=== PATIENT | male | born 1995 | race Hispanic/Latino ===

== ENCOUNTER 2017-09-28 21:27 | Observation (INO) | payer BC ==
[2017-09-28] MEDS ORDERED: IBUPROFEN 400 MG TAB ONE (21:53)
[2017-09-28] MEDS ORDERED: IBUPROFEN 200 MG TAB PO ONE (21:53)
[2017-09-28] MEDS ORDERED: ONDANSETRON 4 MG/2 ML VIAL ONE (21:57)
[2017-09-28] MEDS ORDERED: NA CHLORIDE 0.9% 1,000 ML ONE ×2 (22:13→23:20)
[2017-09-28 22:19] LABS: Absolute Lymphocytes (CBC) 2.4 K/uL (0.7-4.9); Absolute Monocytes 1.6 K/uL (0.1-1.3); Absolute Neutrophil 15.8 K/uL (1.8-8.0); Basophils % 0.3 % (0-1.3); Eosinophils % 0.1 % (0-4.4); Hematocrit 46.8 % (39.6-49.0); Lymphocytes % 12.2 % (15.3-44.8); MCH 28.1 pg (27.0-35.0); MPV 9.7 fL (7.6-11.3); Monocytes % 7.9 % (3.3-12.3); RBC Red Blood Cell Count 5.71 M/uL (4.33-5.43)
[2017-09-28 22:25] LABS: Protime INR 1.08
[2017-09-28 22:31] LABS: Bicarbonate 25 mEq/L (21-31); Glucose Level 108 mg/dL (65-120); Potassium 3.2 mEq/L (3.6-5.0); Sodium Level 134 mEq/L (135-145)
[2017-09-28 22:39] LABS: ALT/SGPT 185 IU/L (10-60); AST/SGOT 116 IU/L (10-42); Albumin 4.5 g/dL (3.2-5.5); Alkaline Phosphatase 134 IU/L (42-121); BUN Blood Urea Nitrogen 12 mg/dL (6-20); Bilirubin Direct 0.2 mg/dL (0-0.2); Bilirubin Total 1.2 mg/dL (0.3-1.2); C-Reactive Protein 70.4 mg/L (<10.0); Creatine Phosphokinase 95 IU/L (22-269); Protein, Total 8.5 g/dL (6.0-8.3)
--- NOTE | 2017-09-28 22:42 | RAD REPORT ---
EXAM DESCRIPTION: RAD - Chest Single View - 09/28/2017 10:33 pm CLINICAL HISTORY: Fever, chest pain COMPARISON: None. FINDINGS: Portable technique limits examination quality. The lungs are grossly clear. The heart is normal in size. No displaced fractures. IMPRESSION: No acute intrathoracic process suspected.
--- NOTE | 2017-09-28 22:43 | RAD REPORT ---
EXAM DESCRIPTION: RAD - Foot Right 3 View - 09/28/2017 10:32 pm CLINICAL HISTORY: Pain and fever. COMPARISON: None. FINDINGS: No bone or joint abnormality seen. No aggressive marrow lesion. No soft tissue gas is evid ent.
[2017-09-28] MEDS ORDERED: LIDOCAINE JELLY 2%- 5 ML TUBE ONE (23:33)
--- NOTE | 2017-09-29 00:12 | ER ---
Nurse's Notes [facility] Name: Pancho Chairez Age: 21 yrs Sex: Male : 1995 Arrival Date: 09/28/2017 Time: 21:27 Bed 8 Private MD: Diagnosis: Cellulitis of right toe Presentation: 09/28 21:40 Presenting complaint: Patient states: "Last night I started to run a fever, and when I aj1 was walking I noticed pain in the bottom of my foot, when I looked there's this black area between my toes." Reports nausea, denies vomiting, diarrhea. Transition of care: patient was not received from another setting of care. Onset of symptoms was September 27, 2017. Risk Assessment: Do you want to hurt yourself or someone else? Patient reports no desire to harm self or others. Initial Sepsis Screen: Does the patient meet any 2 criteria? Temp <36.0*C (96.8*F)) or > 38.3*C (100.4*F). HR > 90 bpm. Yes Does the patient have a suspected source of infection? Yes: Skin breakdown/wound. Care prior to arrival: None. 21:40 Method Of Arrival: Ambulatory aj 21:40 Acuity: JERRICA 3 aj1 Triage Assessment: 21:45 General: Appears uncomfortable, ill, Behavior is anxious, crying. Pain: Complains of aj1 pain in right foot Pain does not radiate. Pain currently is 10 out of 10 on a pain scale. Quality of pain is described as throbbing, Pain began 1 day ago. Is continuous, Aggravated by repositioning, weight bearing. Historical: - Allergies: 21:45 No Known Allergies; aj1 - Home Meds: 21:45 None [Active]; aj1 - PMHx: 21:45 None; aj1 - PSHx: 21:45 None; aj1 - Immunization history:: Flu vaccine status is unknown. - Social history:: Smoking status: Patient/guardian denies using tobacco. - Ebola Screening: : No symptoms or risks identified at this time. Screenin:02 Abuse screen: Denies threats or abuse. Denies injuries from another. Nutritional mg2 screening: No deficits noted. Tuberculosis screening: No symptoms or risk factors identified. Fall Risk IV access (20 points). Gait- Weak (10 pts.). Assessment: 21:57 General: Appears in no apparent distress. comfortable, Behavior is calm, cooperative. mg2 Pain: Complains of pain in right foot Pain does not radiate. Pain level that patient reports is acceptable is 5 out of 10 on a pain scale. Quality of pain is described as aching, tender, Pain began last night Is intermittent, Aggravated by weight bearing, touch. Pain: Aggravated by. Neuro: Level of Consciousness is awake, alert, obeys commands, Oriented to person, place, time, situation. Cardiovascular: Capillary refill < 3 seconds Patient's skin is warm and dry. Respiratory: Airway is patent Respiratory effort is even, unlabored, Respiratory pattern is regular, symmetrical. GI: No signs and/or symptoms were reported involving the gastrointestinal system. : No signs and/or symptoms were reported regarding the genitourinary system. EENT: No signs and/or symptoms were reported regarding the EENT system. Derm: Skin skin breakdown and discoloration Skin is pink, warm \\T\\ dry. Musculoskeletal: No signs and/or symptoms reported regarding the musculoskeletal system. Injury Description: possible insectbite. 23:00 Reassessment: Patient appears in no apparent distress at this time. Patient and/or aa1 family updated on plan of care and expected duration. Pain level reassessed. Patient is alert, oriented x 3, equal unlabored respirations, skin warm/dry/pink. Awaiting provider reassessment. 09/29 00:30 Reassessment: Patient appears in no apparent distress at this time. Patient and/or aa1 family updated on plan of care and expected duration. Pain level reassessed. Patient is alert, oriented x 3, equal unlabored respirations, skin warm/dry/pink. Pt to be admitted, awaiting bed assignment. 01:45 Reassessment: Patient appears in no apparent distress at this time. Patient and/or aa1 family updated on plan of care and expected duration. Pain level reassessed. Patient is alert, oriented x 3, equal unlabored respirations, skin warm/dry/pink. Awaiting bed assignment. 02:57 Reassessment: Patient appears in no apparent distress at this time. Patient and/or aa1 family updated on plan of care and expected duration. Pain level reassessed. Patient is alert, oriented x 3, equal unlabored respirations, skin warm/dry/pink. Attempted to call report to floor, nurse will call back. 03:13 Reassessment: Patient appears in no apparent distress at this time. Patient is alert, aa1 oriented x 3, equal unlabored respirations, skin warm/dry/pink. Report given to Yarely on 4th floor. Vital Signs: 09/28 21:45 BP 142 / 85; Pulse 120; Resp 20; Temp 101.5(TE); Pulse Ox 100% on R/A; Weight 95.25 kg aj1 (R); Height 5 ft. 5 in. (165.10 cm) (R); Pain 10/10; 21:50 Temp 99.5(O); aa1 22:49 BP 125 / 88; Pulse 112; Resp 18; Pulse Ox 95% on R/A; Pain 3/10; mg2 09/29 00:36 BP 116 / 73; Pulse 103; Resp 18; Temp 97.5; Pulse Ox 100% on R/A; Pain 2/10; mg2 01:59 BP 117 / 70; Pulse 102; Resp 18; Pulse Ox 98% on R/A; Pain 0/10; mg2 02:33 BP 119 / 84; Pulse 108; Resp 16; Pulse Ox 96% on R/A; aa1 03:04 BP 127 / 76; Pulse 88; Resp 16; Pulse Ox 97% on R/A; aa1 09/28 21:45 Body Mass Index 34.95 (95.25 kg, 165.10 cm) aj1 ED Course: 09/28 21:27 Patient arrived in ED. ds1 21:33 [facility] snw 21:33 Mainor Eric MD is Attending Physician. snw 21:44 Triage completed. aj1 21:45 Arm band placed on Patient placed in an exam room. aj1 21:45 Patient has correct armband on for positive identification. Placed in gown. Bed in low aa1 position. Call light in reach. Pulse ox on. NIBP on. 21:55 Pipo Espinosa, ANJALI is Primary Nurse. mg2 22:09 Inserted saline lock: 20 gauge in right antecubital area, using aseptic technique. mg2 Blood collected. 22:26 X-ray completed. Portable x-ray completed in exam room. Patient tolerated procedure kc2 well. 22:29 Chest Single View XRAY In Process Unspecified. EDMS 22:29 Foot Right 3 View XRAY In Process Unspecified. EDMS 09/29 00:00 Assist provider with I \\T\\ D: of an abscess on right webspace between 4th and fifth toe aa1 Set up I\\T\\D tray. Performed by Naina CHAU Culture sent to lab. Patient tolerated well. 00:10 Irina Donovan MD is Hospitalizing Provider. snw 00:13 Patient admitted, IV remains in place. aa1 Administered Medications: 09/28 21:54 Drug: Motrin 600 mg Route: PO; tl2 22:55 Follow up: Response: No adverse reaction; Temperature is decreased aa1 09/29 00:43 Follow up: Response: No adverse reaction; Pain is decreased mg2 09/28 22:09 Drug: Zofran 4 mg Route: IVP; Site: right antecubital; mg2 22:55 Follow up: Response: No adverse reaction; Nausea is decreased aa1 09/29 00:43 Follow up: Response: No adverse reaction mg2 09/28 22:14 Drug: NS 0.9% (30 ml/kg) 30 ml/kg Route: IV; Rate: bolus; Site: right antecubital; mg2 23:36 Drug: Lidocaine Gel 2 % 1 application Route: Mucous Membrane; mg2 09/29 00:27 Drug: vancoMYCIN 1 grams Route: IVPB; Infused Over: 2 hrs; Site: right antecubital; mg2 00:27 Drug: Doxycycline 100 mg Route: PO; mg2 02:05 Follow up: Response: No adverse reaction mg2 00:35 Drug: Potassium Chloride 40 mEq Route: PO; mg2 02:06 Follow up: Response: No adverse reaction mg2 Outcome: 00:11 Decision to Hospitalize by Provider. snw 03:18 Admitted to Med/surg accompanied by tech, family with patient, via wheelchair, room aa1 216, with chart, Report called to [place] 03:18 Condition: good 03:18 Instructed on the need for admit, Demonstrated understanding of instructions. 03:20 Patient left the ED. aa1 Signatures: Dispatcher [employer] EDMS Cassie Bolanos RN RN aj1 Angela Abreu RN RN aa1 Naina Chacon FNP-C MASH TUB COOKER OPERATOR-Bing Villegas ds1 Sallie Magallon kc2 Li Cee, RN RN tl2 Pipo Espinosa, RN RN mg2 Corrections: (The following items were deleted from the chart) 00:05 00:04 Reassessment: Patient appears in no apparent distress at this time. Patient is aa1 alert, oriented x 3, equal unlabored respirations, skin warm/dry/pink. Discussed d/c \\T\\ f/u instructions with pt; denies questions or concerns at this time Patient states feeling better. aa1 03:12 09/28 22:56 Temp 99.5F Oral; aa1 aa1 09/29 03:18 03:14 No provider procedures requiring assistance completed. aa1 aa1
--- NOTE | 2017-09-29 00:12 | EDPHYS ---
Physician Documentation [facility] Name: Pancho Chairez Age: 21 yrs Sex: Male : 1995 Arrival Date: 09/28/2017 Time: 21:27 Bed 8 Private MD: ED Physician Mainor Eric HPI: 09/28 23:34 This 21 yrs old Male presents to ER via Ambulatory with complaints of Possible snw Spider Bite. 23:34 Onset: The symptoms/episode began/occurred suddenly, this morning. Associated signs and snw symptoms: Pertinent positives: fever. Modifying factors: The patient symptoms are alleviated by nothing. The patient has not experienced similar symptoms in the past. It is unknown whether or not the patient has recently seen a physician. unknown injury, walking in grass with sandals yesterday. Awoke with fever and noted tenderness and erythema to right foot. Historical: - Allergies: 21:45 No Known Allergies; aj1 - Home Meds: 21:45 None [Active]; aj1 - PMHx: 21:45 None; aj1 - PSHx: 21:45 None; aj1 - Immunization history:: Flu vaccine status is unknown. - Social history:: Smoking status: Patient/guardian denies using tobacco. - Ebola Screening: : No symptoms or risks identified at this time. ROS: 23:33 Eyes: Negative for injury, pain, redness, and discharge, ENT: Negative for injury, snw pain, and discharge, Neck: Negative for injury, pain, and swelling, Cardiovascular: Negative for chest pain, palpitations, and edema, Respiratory: Negative for shortness of breath, cough, wheezing, and pleuritic chest pain. 23:33 Back: Negative for injury and pain, : Negative for injury, bleeding, discharge, and swelling, Skin: Negative for injury, rash, and discoloration, Neuro: Negative for headache, weakness, numbness, tingling, and seizure. 23:33 Constitutional: Positive for body aches, fatigue, fever, malaise. 23:33 Abdomen/GI: Positive for nausea. 23:33 MS/extremity: Positive for bite, pain, swelling, tenderness, of the plantar aspect of right fourth toe. Exam: 21:55 Head/Face: Normocephalic, atraumatic. Eyes: Pupils equal round and reactive to light, snw extra-ocular motions intact. Lids and lashes normal. Conjunctiva and sclera are non-icteric and not injected. Cornea within normal limits. Periorbital areas with no swelling, redness, or edema. ENT: Nares patent. No nasal discharge, no septal abnormalities noted. Tympanic membranes are normal and external auditory canals are clear. Oropharynx with no redness, swelling, or masses, exudates, or evidence of obstruction, uvula midline. Mucous membranes moist. Neck: Trachea midline, no thyromegaly or masses palpated, and no cervical lymphadenopathy. Supple, full range of motion without nuchal rigidity, or vertebral point tenderness. No Meningismus. Chest/axilla: Normal chest wall appearance and motion. Nontender with no deformity. No lesions are appreciated. 21:55 Respiratory: Lungs have equal breath sounds bilaterally, clear to auscultation and percussion. No rales, rhonchi or wheezes noted. No increased work of breathing, no retractions or nasal flaring. Abdomen/GI: Soft, non-tender, with normal bowel sounds. No distension or tympany. No guarding or rebound. No evidence of tenderness throughout. Back: No spinal tenderness. No costovertebral tenderness. Full range of motion. Skin: Warm, dry with normal turgor. Normal color with no rashes, no lesions, and no evidence of cellulitis. Neuro: Awake and alert, GCS 15, oriented to person, place, time, and situation. Cranial nerves II-XII grossly intact. Motor strength 5/5 in all extremities. Sensory grossly intact. Cerebellar exam normal. Normal gait. 21:55 Cardiovascular: Regular rate and rhythm with a normal S1 and S2. No gallops, murmurs, or rubs. Normal PMI, no JVD. No pulse deficits. 21:55 Constitutional: The patient appears awake, anxious, febrile, restless, uncomfortable. 21:55 Cardiovascular: Rate: tachycardic, Pulses: no pulse deficits are appreciated, Heart sounds: normal. 21:55 Musculoskeletal/extremity: ROM: intact in all extremities, Circulation is intact in all extremities. right fourth toe with erythema over the dorsal foot, blackened area laterally in toe webbing. Vital Signs: 21:45 BP 142 / 85; Pulse 120; Resp 20; Temp 101.5(TE); Pulse Ox 100% on R/A; Weight 95.25 kg aj1 (R); Height 5 ft. 5 in. (165.10 cm) (R); Pain 10/10; 21:50 Temp 99.5(O); aa1 22:49 BP 125 / 88; Pulse 112; Resp 18; Pulse Ox 95% on R/A; Pain 3/10; mg2 09/29 00:36 BP 116 / 73; Pulse 103; Resp 18; Temp 97.5; Pulse Ox 100% on R/A; Pain 2/10; mg2 01:59 BP 117 / 70; Pulse 102; Resp 18; Pulse Ox 98% on R/A; Pain 0/10; mg2 02:33 BP 119 / 84; Pulse 108; Resp 16; Pulse Ox 96% on R/A; aa1 03:04 BP 127 / 76; Pulse 88; Resp 16; Pulse Ox 97% on R/A; aa1 09/28 21:45 Body Mass Index 34.95 (95.25 kg, 165.10 cm) [facility] MDM: 09/28 21:48 Patient medically screened. [facility] 23:24 Data reviewed: vital signs, nurses notes. Data interpreted: Pulse oximetry: on room air snw is 95 %. Interpretation: normal. Counseling: I had a detailed discussion with the patient and/or guardian regarding: the historical points, exam findings, and any diagnostic results supporting the discharge/admit diagnosis, the presence of at least one elevated blood pressure reading (>120/80) during this emergency department visit, lab results, radiology results. 09/29 00:09 Physician consultation: Irina Donovan MD was called at 00:09, was contacted at 00:09, [facility] regarding admission, to the medical/surgical unit. and will see patient shortly. 09/28 21:51 Order name: Basic Metabolic Panel; Complete Time: 22:40 snw 09/28 21:51 Order name: Blood Culture Adult (2) snw 09/28 21:51 Order name: C-Reactive Protein; Complete Time: 22:40 snw 09/28 21:51 Order name: CBC with Diff; Complete Time: 22:59 snw 09/28 21:51 Order name: CPK; Complete Time: 22:40 snw 09/28 21:51 Order name: Lactate; Complete Time: 22:39 snw 09/28 21:51 Order name: LFT's; Complete Time: 22:40 snw 09/28 21:51 Order name: Procalcitonin; Complete Time: 22:59 snw 09/28 21:51 Order name: Protime (+inr); Complete Time: 22:39 snw 09/28 21:51 Order name: Ptt, Activated; Complete Time: 22:39 snw 09/28 21:51 Order name: Sed Rate; Complete Time: 22:59 snw 09/28 21:51 Order name: Chest Single View XRAY; Complete Time: 22:59 snw 09/28 23:34 Order name: Wound Culture snw 09/29 00:04 Order name: Urine Dipstick--Ancillary (enter results); Complete Time: 00:26 2 09/28 21:51 Order name: Cardiac monitoring; Complete Time: 22:14 snw 09/28 21:51 Order name: EKG - Nurse/Tech; Complete Time: 22:10 snw 09/28 21:51 Order name: IV Saline Lock - Large Bore; Complete Time: 22:10 snw 09/28 21:51 Order name: Labs collected and sent; Complete Time: 22:10 snw 09/28 21:51 Order name: O2 Per Protocol; Complete Time: 22:10 snw 09/28 21:51 Order name: O2 Sat Monitoring; Complete Time: 22:10 snw 09/28 21:51 Order name: Urine Dipstick-Ancillary (obtain specimen); Complete Time: 00:02 snw 09/28 21:52 Order name: Foot Right 3 View XRAY; Complete Time: 22:59 snw Administered Medications: 09/28 21:54 Drug: Motrin 600 mg Route: PO; tl2 22:55 Follow up: Response: No adverse reaction; Temperature is decreased aa1 09/29 00:43 Follow up: Response: No adverse reaction; Pain is decreased mg2 09/28 22:09 Drug: Zofran 4 mg Route: IVP; Site: right antecubital; mg2 22:55 Follow up: Response: No adverse reaction; Nausea is decreased aa1 09/29 00:43 Follow up: Response: No adverse reaction mg2 09/28 22:14 Drug: NS 0.9% (30 ml/kg) 30 ml/kg Route: IV; Rate: bolus; Site: right antecubital; mg2 23:36 Drug: Lidocaine Gel 2 % 1 application Route: Mucous Membrane; mg2 09/29 00:27 Drug: vancoMYCIN 1 grams Route: IVPB; Infused Over: 2 hrs; Site: right antecubital; mg2 00:27 Drug: Doxycycline 100 mg Route: PO; mg2 02:05 Follow up: Response: No adverse reaction mg2 00:35 Drug: Potassium Chloride 40 mEq Route: PO; mg2 02:06 Follow up: Response: No adverse reaction mg2 Disposition: 09/29/17 00:11 Hospitalization ordered by Irina Donovan for Observation. Preliminary diagnosis is Cellulitis of right toe. - Bed requested for Telemetry/MedSurg (observation). - Status is Observation. aa1 - Condition is Stable. - Problem is new. - Symptoms have improved. UTI on Admission? No Addendum: 09/30/2017 07:05 Co-signature as Attending Physician, Mainor Eric MD I agree with the assessment and c anderson plan of care. Signatures: Dispatcher [employer] EDMA Cassie Bolanos RN RN aj1 Holley Gaines RN RN kl Angela Abreu RN RN aa1 Mainor Eric MD MD cha Therrien, Shelly, CLINICAL RESEARCH NURSE COORDINATOR-C CLINICAL RESEARCH NURSE COORDINATOR-Csnw Li Cee, RN RN tl2 Pipo Espinosa RN RN mg2 Corrections: (The following items were deleted from the chart) 09/28 22:54 21:51 Accucheck ordered. snw aa1 09/29 02:19 00:11 Hospitalization Ordered by Irina Donovan MD for Observation. Preliminary kl diagnosis is Cellulitis of right toe. Bed requested for Telemetry/MedSurg (observation). Status is Observation. Condition is Stable. Problem is new. Symptoms have improved. UTI on Admission? No. snw 03:20 02:19 09/29/2017 00:11 Hospitalization Ordered by Irina Donovan MD for Observation. aa1 Preliminary diagnosis is Cellulitis of right toe. Bed requested for Telemetry/MedSurg (observation). Status is Observation. Condition is Stable. Problem is new. Symptoms have improved. UTI on Admission? No. kl
[2017-09-29] MEDS ORDERED: DOXYCYCLINE 100 MG CAP PO ONE (00:18)
[2017-09-29] MEDS ORDERED: VANCOMYCIN 1 GM/250 ML BAG ONE (00:19)
[2017-09-29 00:20] LABS: Urine Blood NEGATIVE (NEG); Urine Glucose NEGATIVE (NEG); Urine Protein NEGATIVE (NEG); Urine Specific Gravity 1.015 (1.005-1.030); Urine pH 7.5 (5.0-7.0)
[2017-09-29] MEDS ORDERED: POTASSIUM CL SA 10 MEQ TAB PO ONE (00:31)
[2017-09-29] MEDS ORDERED: ACETAMINOPHEN 500 MG TAB PO PRN (01:34)
[2017-09-29] MEDS ORDERED: MORPHINE 4 MG/ML SYR IV PRN (01:34)
[2017-09-29] MEDS: NA CHLORIDE 0.9% 1,000 ML IV SCH ×3 (03:46→21:37)
[2017-09-29 05:16] VITALS: BMI 34.9
[2017-09-29] MEDS ORDERED: AMPICILLIN/SULBACTAM 3GM/VIAL ONE (05:36)
[2017-09-29] MEDS ORDERED: NA CHLORIDE 0.9% 100 ML ONE (05:56)
[2017-09-29] MEDS: AMPICILLIN/SULBACT 3 GM in NA CHLORIDE 0.9% 100 ML IVPB SCH ×3 (06:00→17:54)
[2017-09-29] MEDS ORDERED: predniSONE 20 MG TAB PO ONE (06:11)
[2017-09-29] MEDS ORDERED: COLCHICINE 0.6 MG TAB PO ONE (06:11)
[2017-09-29 11:05] LABS: Absolute Monocytes 0.8 K/uL (0.1-1.3); Absolute Neutrophil 8.8 K/uL (1.8-8.0); Basophils % 0.3 % (0-1.3); Eosinophils % 0.3 % (0-4.4); Hematocrit 45.3 % (39.6-49.0); Lymphocytes % 16.9 % (15.3-44.8); MCH 28.3 pg (27.0-35.0); MCV 83.7 fL (80-100); MPV 9.4 fL (7.6-11.3); Monocytes % 6.9 % (3.3-12.3); RBC Red Blood Cell Count 5.41 M/uL (4.33-5.43)
--- NOTE | 2017-09-29 11:07 | P.HP ---
Certification for Inpatient Patient admitted to: Observation With expected LOS: <2 Midnights Patient will require the following post-hospital care: None Practitioner: I am a practitioner with admitting privileges, knowledge of patient current condition, hospital course, and medical plan of care. Services: Services provided to patient in accordance with Admission requirements found in Title 42 Section 412.3 of the Code of Federal Regulations Patient History Date of Service: 09/29/17 Reason for admission: Right 4th-5th toe swelling History of Present Illness: Patient is a 21-year-old young man who came into the hospital with this swelling in his 4th and 5th toe. He states that he had very bad swelling of the 4th toe. He decided to come into the emergency room for further evaluation. He denies any fever, shakes, or chills. There was a darkened area between the toes as well. The toe was very tender. In the emergency room he had an elevated white blood cell count. His C reactive protein was elevated. However, he did not have any abnormalities on his x-ray. In the emergency room patient had an incision and debridement of that area. There was no purulent drainage. Patient was admitted for cellulitis of the toes. Patient also states that he has a family history of gouty arthropathy. He does admit to drinking and eating a lot of meat. The patient may have gouty arthropathy. Will get a 24 hr urine for uric acid as well as a serum uric acid. However, because of the elevated white count and the inflammation will treat him for cellulitis. However, if the inflammation improves quickly then it may be possible that he has developed gout in the 4th toe. Allergies No Known Allergies Allergy (Verified 09/29/17 03:24) Home Medications: NK [No Home Meds] 09/29/17 - Past Medical/Surgical History Has patient received pneumonia vaccine in the past: No Diabetic: No -: staph infection; boils -: none - Family History Mother Medical History: Diabetes Father Medical History: Diabetes - Social History Smoking Status: Never smoker Alcohol use: Yes CD- Drugs: No Caffeine use: Yes Place of Residence: Home Review of Systems 10-point ROS is otherwise unremarkable Physical Examination - Vital Signs Temperature: 96.9 F Blood Pressure: 120/85 Pulse: 88 Respirations: 16 Pulse Ox (%): 96 - Physical Exam General: Alert, In no apparent distress, Oriented x3 HEENT: Atraumatic, PERRLA, Mucous membr. moist/pink, EOMI, Sclerae nonicteric Neck: Supple, 2+ carotid pulse no bruit, No LAD, Without JVD or thyroid abnormality Respiratory: Clear to auscultation bilaterally, Normal air movement Cardiovascular: Regular rate/rhythm, Normal S1 S2 Gastrointestinal: Normal bowel sounds, No tenderness Musculoskeletal: Erythema, Tenderness, Warmth Integumentary: No rashes Neurological: Normal gait, Normal speech, Normal strength at 5/5 x4 extr, Normal tone, Normal affect Lymphatics: No axilla or inguinal lymphadenopathy - Studies Laboratory Data (last 24 hrs) 09/28/17 21:50: PT 12.7 H, INR 1.08, APTT 29.4 09/28/17 21:50: WBC 19.9 H, Hgb 16.0, Hct 46.8, Plt Count 287 09/28/17 21:50: Sodium 134 L, Potassium 3.2 L, BUN 12, Creatinine 0.81, Glucose 108, Total Bilirubin 1.2, AST 116 H, ALT 185 H, Alkaline Phosphatase 134 H Microbiology Data (last 24 hrs): 09/28/17 23:59 Wound - Right Foot Gram Stain - Final Assessment & Plan - Problems (Diagnosis) (1) Gouty arthritis Current Visit: Yes Status: Acute (2) Cellulitis of toe, right Onset Date: 09/29/17 Current Visit: Yes Status: Acute - Plan Plan: 1. Continue with IV antibiotic 2. Continue with local wound care 3. Check urate level 4. Gentle IV hydration 5. Monitor CBC 6. Strict blood sugar monitoring 7. Pain control 8. GI and DVT prophylaxis Discharge Plan: Home Plan to discharge in: 24 Hours - Advance Directives Does patient have a Living Will: No Does patient have a Durable POA for Healthcare: No - Code Status/Comfort Care Code Status Assessed: Yes Code Status: Full Code Critical Care: No Time Spent Managing PTS Care (In Minutes): 50
[2017-09-29 12:23] LABS: ALT/SGPT 215 IU/L (10-60); AST/SGOT 165 IU/L (10-42); Albumin 3.8 g/dL (3.2-5.5); Alkaline Phosphatase 118 IU/L (42-121); BUN Blood Urea Nitrogen 9 mg/dL (6-20); Bicarbonate 27 mEq/L (21-31); Bilirubin Total 1.3 mg/dL (0.3-1.2); Glucose Level 115 mg/dL (65-120); Magnesium 1.8 mg/dL (1.8-2.5); Phosphorus 1.8 mg/dL (2.5-4.3); Potassium 4.4 mEq/L (3.6-5.0); Sodium Level 138 mEq/L (135-145); Uric Acid 4.3 mg/dL (4.8-8.7)
--- NOTE | 2017-09-29 13:47 | EKG ---
Test Date: 2017-09-28 Test Time: 22:06:53 Frame Changer: LEANA MEASUREMENT RESULTS: Intervals: Rate: 109 TX: 124 QRSD: 82 QT: 302 QTc: 406 [place]: P: 42 TX: 124 QRS: 41 T: 30 INTERPRETIVE STATEMENTS: Sinus tachycardia Otherwise normal ECG No previous ECG available for comparison Electronically Signed On 09-29-17 13:47:18 CDT by Addi Gold
[2017-09-29] MEDS ORDERED: Morphine 2 MG/2 ML SYR IV PRN (18:00)
[2017-09-29] MEDS: TRAMADOL HCL 50 MG TAB PO PRN (18:07)
[2017-09-30] MEDS: AMPICILLIN/SULBACT 3 GM in NA CHLORIDE 0.9% 100 ML IVPB SCH ×5 (00:16→23:46)
[2017-09-30] MEDS: TRAMADOL HCL 50 MG TAB PO PRN ×3 (00:17→19:17)
[2017-09-30 06:26] LABS: Absolute Lymphocytes (CBC) 4.2 K/uL (0.7-4.9); Absolute Monocytes 0.7 K/uL (0.1-1.3); Absolute Neutrophil 4.7 K/uL (1.8-8.0); Basophils % 0.6 % (0-1.3); Hematocrit 43.2 % (39.6-49.0); Lymphocytes % 43.1 % (15.3-44.8); MCH 28.3 pg (27.0-35.0); MCV 83.9 fL (80-100); MPV 9.6 fL (7.6-11.3); RBC Red Blood Cell Count 5.15 M/uL (4.33-5.43)
[2017-09-30 07:05] LABS: AST/SGOT 172 IU/L (10-42); Albumin 3.4 g/dL (3.2-5.5); Alkaline Phosphatase 117 IU/L (42-121); BUN Blood Urea Nitrogen 11 mg/dL (6-20); Bicarbonate 27 mEq/L (21-31); Bilirubin Total 0.5 mg/dL (0.3-1.2); Glucose Level 101 mg/dL (65-120); Magnesium 1.8 mg/dL (1.8-2.5); Potassium 4.2 mEq/L (3.6-5.0); Protein, Total 6.5 g/dL (6.0-8.3); Sodium Level 140 mEq/L (135-145)
[2017-09-30 07:11] LABS: ALT/SGPT 308 IU/L (10-60)
[2017-09-30] MEDS: NA CHLORIDE 0.9% 1,000 ML IV SCH ×4 (08:00→21:12)
[2017-09-30] MEDS ORDERED: SODIUM PHOSPHATE 20 MM in NA CHLORIDE 0.9% 250 ML IV ONE (08:00)
[2017-09-30] MEDS ORDERED: MORPHINE 4 MG/ML SYR IV PRN (10:46)
[2017-09-30] MEDS ORDERED: Morphine 2 MG/2 ML SYR IV PRN (10:48)
[2017-09-30] MEDS ORDERED: NA CHLORIDE 0.9% 500 ML IV ONE (10:51)
--- NOTE | 2017-09-30 12:22 | P.PN ---
Subjective Date of Service: 09/30/17 Chief Complaint: Right 4th-5th toe swelling Pt seen and examined. Chart Reviewed and case DW with Patient and family members by Bedside. Review of Systems General: As per HPI Physical Examination - Vital Signs Temperature: 96.9 F Blood Pressure: 120/77 Pulse: 78 Respirations: 18 Pulse Ox (%): 97 - Physical Exam General: Alert, In no apparent distress HEENT: Atraumatic, PERRLA, EOMI Neck: Supple, JVD not distended Respiratory: Clear to auscultation bilaterally, Normal air movement Cardiovascular: Regular rate/rhythm, Normal S1 S2 Gastrointestinal: Normal bowel sounds, No tenderness Musculoskeletal: Other (5mm necrotic wound between 4th and 5th toe on the right side. ) Integumentary: No rashes Neurological: Normal speech, Normal tone, Normal affect Lymphatics: No axilla or inguinal lymphadenopathy - Studies Microbiology Data (last 24 hrs): 09/28/17 23:59 Wound - Right Foot Gram Stain - Final Medications List Reviewed: Yes Assessment & Plan - Problems (Diagnosis) (1) Cellulitis of toe, right Onset Date: 09/29/17 Current Visit: Yes Status: Acute Plan: Possible Bug bite -IV ampicillin -IV fluids -Will get MRI if needed and no resolution of the erythema or necrosis (2) Adverse effect of colchicine Current Visit: Yes Status: Acute Plan: LFt's are elevated. Pt received one dose of colchicine for gout attack -Stop Colchicine and all other tylenol productions -IV fluids -repeat Lab work in AM tee Qualifiers: Encounter type: initial encounter Qualified Code(s): T50.4X5A - Adverse effect of drugs affecting uric acid metabolism, initial encounter Discharge Plan: Home Plan to discharge in: 24 Hours - Code Status/Comfort Care Code Status Assessed: Yes Critical Care: No
[2017-09-30] MEDS ORDERED: NA CHLORIDE 0.9% 1,000 ML IV ONE (20:44)
[2017-10-01 02:02] VITALS: O2SAT 97
[2017-10-01] MEDS: TRAMADOL HCL 50 MG TAB PO PRN ×2 (04:14→10:04)
[2017-10-01] MEDS: AMPICILLIN/SULBACT 3 GM in NA CHLORIDE 0.9% 100 ML IVPB SCH (05:43)
[2017-10-01] MEDS: NA CHLORIDE 0.9% 1,000 ML IV SCH (06:19)
[2017-10-01 06:52] LABS: Absolute Lymphocytes (CBC) 3.5 K/uL (0.7-4.9); Absolute Monocytes 0.5 K/uL (0.1-1.3); Absolute Neutrophil 4.2 K/uL (1.8-8.0); Basophils % 0.4 % (0-1.3); Eosinophils % 1.3 % (0-4.4); Hematocrit 45.4 % (39.6-49.0); MCH 28.2 pg (27.0-35.0); MCV 83.3 fL (80-100); MPV 9.4 fL (7.6-11.3); Monocytes % 5.8 % (3.3-12.3); RBC Red Blood Cell Count 5.44 M/uL (4.33-5.43)
[2017-10-01 07:15] LABS: AST/SGOT 118 IU/L (10-42); Albumin 3.7 g/dL (3.2-5.5); Alkaline Phosphatase 118 IU/L (42-121); BUN Blood Urea Nitrogen 9 mg/dL (6-20); Bicarbonate 30 mEq/L (21-31); Bilirubin Total 0.6 mg/dL (0.3-1.2); Glucose Level 84 mg/dL (65-120); Magnesium 1.7 mg/dL (1.8-2.5); Phosphorus 4.5 mg/dL (2.5-4.3); Potassium 4.2 mEq/L (3.6-5.0); Protein, Total 7.1 g/dL (6.0-8.3); Sodium Level 136 mEq/L (135-145)
[2017-10-01 07:40] LABS: ALT/SGPT 321 IU/L (10-60)
--- NOTE | 2017-10-01 08:06 | RAD REPORT ---
EXAM DESCRIPTION: US - Abdomen Exam Complete - 10/01/2017 7:23 am CLINICAL HISTORY: Abnormal liver function COMPARISON: None. FINDINGS: Gallbladder size is normal. No gallstones, wall thickening or pericholecystic fluid. Commo n bile duct is normal with no common duct stone identified. Liver and spleen are normal in size. No f ocal liver lesions identifiable. Liver echotexture could indicate a mild fatty infiltration. No capsu lar nodularity. The pancreas is too obscured for full assessment. No hydronephrosis or suspicious mass in either kidney. Aorta is partially obscured. No ascites or bulky lymphadenopathy. IMPRESSION: No gallbladder or biliary tree abnormality. Questionable mild fatty infiltration of the liver with no focal liver lesion. Aorta and pancreas are grossly normal but too obscured by bowel gas to allow all full assessment. Cli nical concerns for aortic or pancreatic process can be addressed with CT imaging.
--- NOTE | 2017-10-01 10:42 | P.DS ---
Admission Date: 09/29/17 Discharge Date: 10/01/17 Primary Care Provider: none Disposition: ROUTINE DISCHARGE Discharge Condition: GOOD Reason for Admission: Right 4th-5th toe swelling Procedures: Abdominal ultrasound: Mild fatty liver - Problems (1) Elevated liver function tests Current Visit: Yes Status: Acute (2) Obesity Current Visit: Yes Status: Chronic Qualifiers: Obesity type: due to excess calories Obesity classification: adult class 1 (BMI 30 - 34.9) Serious obesity comorbidity presence: without serious comorbidity Body mass index: BMI 34.0-34.9 Qualified Code(s): E66.09 - Other obesity due to excess calories; Z68.34 - Body mass index (BMI) 34.0-34.9, adult (3) Adverse effect of colchicine Current Visit: Yes Status: Suspected Qualifiers: Encounter type: initial encounter Qualified Code(s): T50.4X5A - Adverse effect of drugs affecting uric acid metabolism, initial encounter (4) Cellulitis of toe, right Onset Date: 09/29/17 Current Visit: Yes Status: Acute (5) Gouty arthritis Current Visit: Yes Status: Suspected (6) Fatty liver Current Visit: Yes Status: Chronic Brief History of Present Illness: 21-year-old male presented to ER with swelling to the 4th and 5th interdigit area. Inflammation was noted. Cellulitis was suspected. There was also a family history of gouty arthritis. This was suspected. Patient was given colchicine and started on IV antibiotic therapy. Patient admitted for treatment. Hospital Course: During the course of his stay the cellulitis improved. At discharge inflammation, erythema was much improved. At discharge patient will continue with current wound care-clean with antibacterial soap on water daily. He is to apply Bactroban ointment to the area. Patient will be sent home on Augmentin 875 mg 1 pill twice daily for 10 days. Patient is to monitor for any changes. Patient will establish care and follow up with a PCP to continue his care. Patient found to have elevated liver function. This was suspected as being related to colchicine which was given for suspected gouty arthritis. Hepatitis panel also obtained. 24 hr urine collection for uric acid obtain. This can be followed up as an outpatient. Recommendation is to recheck liver panel in 1 week to monitor his progress. If still elevated patient will need GI evaluation as an outpatient to further evaluate. Abdominal ultrasound showed mild fatty liver. Lifestyle modification education will also be provided. Vital Signs/Physical Exam: Temp Pulse Resp BP Pulse Ox 97.5 F 67 18 117/77 97 10/01/17 04:00 10/01/17 04:00 10/01/17 04:00 10/01/17 04:00 10/01/17 04:00 General: Alert, In no apparent distress, Oriented x3, Cooperative HEENT: Atraumatic, Mucous membr. moist/pink Neck: Supple, No Thyromegaly Respiratory: Clear to auscultation bilaterally, Normal air movement Cardiovascular: Normal pulses, Regular rate/rhythm Gastrointestinal: Normal bowel sounds, Soft and benign, Non-distended, No tenderness, No masses, No rebound, No guarding Musculoskeletal: No erythema, No tenderness, No warmth Integumentary: Other (No significant erythema noted to the 4th and 5th digit. Small ulcer noted. No exudate noted) Neurological: Normal speech, Normal strength at 5/5 x4 extr, Normal tone, Normal affect Laboratory Data at Discharge: WBC 8.3 K/uL (4.3-10.9) D 10/01/17 06:33 Hgb 15.4 g/dL (13.6-17.9) 10/01/17 06:33 Hct 45.4 % (39.6-49.0) 10/01/17 06:33 Plt Count 296 K/uL (152-406) 10/01/17 06:33 PT 12.7 SECONDS (9.5-12.5) H 09/28/17 21:50 INR 1.08 09/28/17 21:50 APTT 29.4 SECONDS (24.3-36.9) 09/28/17 21:50 Sodium 136 mEq/L (135-145) 10/01/17 06:33 Potassium 4.2 mEq/L (3.6-5.0) 10/01/17 06:33 BUN 9 mg/dL (6-20) 10/01/17 06:33 Creatinine 0.70 mg/dL (0.61-1.24) 10/01/17 06:33 Glucose 84 mg/dL (65-120) 10/01/17 06:33 Uric Acid 4.3 mg/dL (4.8-8.7) L 09/29/17 10:46 Phosphorus 4.5 mg/dL (2.5-4.3) H 10/01/17 06:33 Magnesium 1.7 mg/dL (1.8-2.5) L 10/01/17 06:33 Total Bilirubin 0.6 mg/dL (0.3-1.2) 10/01/17 06:33 AST 118 IU/L (10-42) H 10/01/17 06:33 ALT 321 IU/L (10-60) H* 10/01/17 06:33 Alkaline Phosphatase 118 IU/L (42-121) 10/01/17 06:33 Home Medications: Amox/Clavulanate [Augmentin 875-125 Tab] 1 each PO BID #20 tab 09/29/17 Mupirocin Oint [Bactroban 2% Ointment] 15 gm TP BID #1 tube 09/29/17 New Medications: Amox/Clavulanate [Augmentin 875-125 Tab] 1 each PO BID #20 tab Mupirocin Oint [Bactroban 2% Ointment] 15 gm TP BID #1 tube Patient Discharge Instructions: 1. Patient will need to follow up and establish care with a PCP to follow up his care. 2. Patient presented with 4th 5th digit cellulitis. Much improved at discharge. Patient will continue with Augmentin 875 mg 1 pill twice daily for 10 days. Patient a clean wound with antibacterial soap and water daily. Patient to apply Bactroban ointment to the area at least twice daily. Patient to monitor for any changes. 3. Patient had elevated liver function likely related to medication-colchicine. Gouty arthritis evaluation pending. This can be followed up as an outpatient. Abdominal ultrasound showed fatty liver. Hepatitis panel pending at discharge. This can be followed up as an outpatient. Recommendation is for the patient to follow up with a PCP to go over lab results. If liver function still elevated, patient will need GI evaluation as an outpatient. RETURN TO THE ER IF symptoms worsens. CALL DR. HUSSEIN AT [phone] IF ANY QUESTIONS REGARDING HOSPITAL STAY. PLEASE CALL THE FLOOR AT [phone] IF ANY MEDICATION OR NURSING QUESTIONS. Diet: Regular Activity: Fall precautions Time spent managing pt's care (in minutes): 55
[2017-10-01 10:52] VITALS: BP 122/83; TEMP 98.1
[2017-10-02 20:06] LABS: HBsAG Nonreactive (Nonreactive); Hepatitis A IgM Antibody Nonreactive
== END 2017-10-01 11:19 | disposition home or self-care (01) ==
LOC: ER 21:27 → ERHOLD 09-29 00:12 → 2ND 09-29 03:09
PROVIDERS: ADMIT Hospitalist; ATTEND Family Medicine
DX: L03.031 Cellulitis of right toe (principal); M10.9 Gout, unspecified; T50.4X5A Adverse effect of drugs affecting uric acid metabolism, initial encounter; Y92.239 Unspecified place in hospital as the place of occurrence of the external cause; K76.0 Fatty (change of) liver, not elsewhere classified
CPT/HCPCS: 36415; 71045; 76700; 80048; 80053; 80074; 80076; 81003; 82550; 82962; 83605; 83735; 84100; 84145; 84550; 85025; 85610; 85652; 85730; 86140; 87040; 87070; 87077; 87186; 87205; 93005; 96374; 96375; 99285; G0378; J0295; J2405; J3370; J7030; J7512

== ENCOUNTER 2018-03-28 18:06 | Emergency (ER) | payer BC ==
--- OUTSIDE RECORDS SUMMARY | 2018-03-28 18:09 | XMS REPORT ---
:1995 Author Organization [employer] Care Team Providers Name Role Phone Saurav Rehman Provider Role Unavailable Allergies No Known Allergies Problems Problem Type Condition Code Onset Dates Condition Status Assessment Urinary tract infection without N39.0 Active hematuria, site unspecified Problem LEE (nonalcoholic steatohepatitis) K75.81 Active Assessment HIV exposure Z20.6 Active Assessment Body mass index (BMI) of 30.0-30.9 Z68.30 Active in adult Assessment Acute cystitis without hematuria N30.00 Active Assessment LEE (nonalcoholic steatohepatitis) K75.81 Active Medications Medication Code Code Instructions Start End Date Status Dosage System Date Macrodantin [facility] 2001 91392326818 100 MG Orally Jan 05, Jan 12, Active 1 capsule bid 2017 2017 with food or milk Pyridium ND [id number] 200 MG Orally Jan 05Jan 07, Active 1 tablet Three times a 2017 2017 after meals day Results No Known Results Summary Purpose [employer] Submission
--- OUTSIDE RECORDS SUMMARY | 2018-03-28 18:09 | XMS REPORT ---
:1995 Author Organization [employer] Care Team Providers Name Role Phone Saurav Rehman Provider Role Unavailable Allergies, Adverse Reactions, Alerts Substance Reaction Event Type N.K.D.A. Info Not Available Non Drug Allergy Problems Problem Type Condition Code Onset Dates Condition Status Assessment Encounter for immunization Z23 Active Assessment Mixed hyperlipidemia E78.2 Active Assessment Body mass index (BMI) of 33.0-33.9 Z68.33 Active in adult Problem Body mass index (BMI) of 33.0-33.9 Z68.33 Active in adult Problem Mixed hyperlipidemia E78.2 Active Problem Gonorrhea in male A54.9 Active Assessment STI (sexually transmitted infection) A64 Active Assessment Elevated blood pressure reading R03.0 Active Problem LEE (nonalcoholic steatohepatitis) K75.81 Active Medications No Known Medications Results No Known Results Immunizations Vaccine Administration Date Flucelvax - single dose syringe Feb 14, 2018 Summary Purpose [employer] Submission
--- OUTSIDE RECORDS SUMMARY | 2018-03-28 18:09 | XMS REPORT ---
:1995 Author Organization [employer] Care Team Providers Name Role Phone Saurav Rehman Provider Role Unavailable Allergies No Known Allergies Problems Problem Type Condition Code Onset Dates Condition Status Problem LEE (nonalcoholic steatohepatitis) K75.81 Active Problem Gonorrhea in male A54.9 Active Assessment Gonorrhea in male A54.9 Active Medications Medication Code System Code Instructions Start End Date Status Dosage Date Zithromax [facility] [id number] 500 MG Orally Jan 21, Jan 22, Active 2 tablets Once a day 2017 2017 Results No Known Results Summary Purpose [employer] Submission
--- NOTE | 2018-03-28 19:26 | EDPHYS ---
Physician Documentation [facility] Name: Pancho Chairez Age: 22 yrs Sex: Male : 1995 Arrival Date: 03/28/2018 Time: 18:09 Bed 12 Private MD: Saurav Rehman ED Physician Kurt Condon HPI: 03/28 19:25 This 22 yrs old Male presents to ER via Ambulatory with complaints of Sore jmm Throat. 19:25 The patient presents with sore throat. Onset: The symptoms/episode began/occurred jmm gradually, 2 day(s) ago. Associated signs and symptoms: Pertinent positives: fever, Pertinent negatives cough. This is a 22 year old male with no chronic medical conditions that presents to the ED with sore throat and fever beginning 2 days ago. Denies cough. . Historical: - Allergies: 18:25 No Known Allergies; sv - Home Meds: 18:25 None [Active]; sv - PMHx: 18:25 None; sv - PSHx: 18:25 None; sv - Immunization history:: Flu vaccine is up to date. - Social history:: Smoking status: Patient/guardian denies using tobacco. - Ebola Screening: : No symptoms or risks identified at this time. ROS: 19:25 Constitutional: Positive for body aches, fever. jmm 19:25 ENT: Positive for sore throat. 19:25 Respiratory: Negative for cough. 19:25 All other systems are negative. Exam: 19:25 Constitutional: This is a well developed, well nourished patient who is awake, alert, jmm and in no acute distress. Head/Face: atraumatic. 19:25 Neck: Trachea midline, Supple Chest/axilla: Normal chest wall appearance and motion. Cardiovascular: Regular rate and rhythm. No edema appreciated Respiratory: Normal respirations, no respiratory distress appreciated Skin: General appearance color normal MS/ Extremity: Moves all extremities, no obvious deformities appreciated, no edema noted to the lower extremities Neuro: Awake and alert, normal gait Psych: Behavior is normal, Mood is normal, Patient is cooperative and pleasant 19:25 ENT: Posterior pharynx: Tonsils: bilaterally enlarged, with erythema, with exudate, Uvula: midline, erythema, that is moderate. Vital Signs: 18:25 BP 137 / 87; Pulse 107; Resp 18; Temp 99.1; Pulse Ox 98% ; Weight 92.99 kg; Height 5 sv ft. 5 in. (165.10 cm); Pain 7/10; 18:25 Body Mass Index 34.11 (92.99 kg, 165.10 cm) sv MDM: 19:24 Patient medically screened. [facility] 19:24 Data reviewed: vital signs, nurses notes. Data interpreted: Pulse oximetry: on room air jm is 98 %. Interpretation: normal. Counseling: I had a detailed discussion with the patient and/or guardian regarding: the presence of at least one elevated blood pressure reading (>120/80) during this emergency department visit, lab results, the need for outpatient follow up, to return to the emergency department if symptoms worsen or persist or if there are any questions or concerns that arise at home. 03/28 18:28 Order name: Strep sv 03/28 18:44 Order name: Group A Streptococcus Rapid Sc; Complete Time: 19:17 EDMS Administered Medications: No medications were administered Disposition: 03/28/18 19:25 Discharged to Home. Impression: Streptococcal pharyngitis. - Condition is Stable. - Discharge Instructions: Pharyngitis, Strep Throat. - Prescriptions for Amoxicillin 875 mg Oral Tablet - take 1 tablet by ORAL route every 12 hours for 10 days; 20 tablet. - Medication Reconciliation Form, Thank You Letter, Antibiotic Education, Prescription Opioid Use form. - Follow up: Saurav Rehman MD; When: 2 - 3 days; Reason: Recheck today's complaints, Continuance of care, Re-evaluation by your physician. Signatures: Dispatcher [employer] Melania Ling RN RN Maico Diaz PA PA Mona Smith Corrections: (The following items were deleted from the chart) 19:48 19:25 03/28/2018 19:25 Discharged to Home. Impression: Streptococcal pharyngitis. Condition is Stable. Forms are Medication Reconciliation Form, Thank You Letter, Antibiotic Education, Prescription Opioid Use. Follow up: Saurav Rehman; When: 2 - 3 days; Reason: Recheck today's complaints, Continuance of care, Re-evaluation by your physician. [facility]
--- NOTE | 2018-03-28 19:26 | ER ---
Nurse's Notes [facility] Name: Pancho Chairez Age: 22 yrs Sex: Male : 1995 Arrival Date: 03/28/2018 Time: 18:09 Bed 12 Private MD: Saurav Rehman Diagnosis: Streptococcal pharyngitis Presentation: 03/28 18:24 Presenting complaint: Patient states: subjective fever, sore throat x1 day. Transition sv of care: patient was not received from another setting of care. Onset of symptoms was March 27, 2018. Care prior to arrival: None. 18:24 Method Of Arrival: Ambulatory sv 18:24 Acuity: JERRICA 4 sv 19:20 Risk Assessment: Do you want to hurt yourself or someone else? Patient reports no wh desire to harm self or others. Initial Sepsis Screen: Does the patient meet any 2 criteria? No. Patient's initial sepsis screen is negative. Does the patient have a suspected source of infection? Yes: Other: Sore throat. Triage Assessment: 18:26 General: Appears in no apparent distress. uncomfortable, Behavior is calm, cooperative, sv appropriate for age. Pain: Complains of pain in left aspect of posterior pharynx and right aspect of posterior pharynx Pain currently is 7 out of 10 on a pain scale. Neuro: Level of Consciousness is awake, alert, obeys commands, Oriented to person, place, time, situation, Moves all extremities. Full function Gait is steady, Speech is normal. Respiratory: Respiratory effort is even, unlabored, Respiratory pattern is regular, symmetrical. Historical: - Allergies: 18:25 No Known Allergies; sv - Home Meds: 18:25 None [Active]; sv - PMHx: 18:25 None; sv - PSHx: 18:25 None; sv - Immunization history:: Flu vaccine is up to date. - Social history:: Smoking status: Patient/guardian denies using tobacco. - Ebola Screening: : No symptoms or risks identified at this time. Screenin:20 Abuse screen: Denies threats or abuse. Denies injuries from another. Nutritional wh screening: No deficits noted. Tuberculosis screening: No symptoms or risk factors identified. Fall Risk None identified. Assessment: 19:20 General: Appears in no apparent distress. comfortable, Behavior is calm, cooperative, wh appropriate for age. Pain: Complains of pain in sore throat. Neuro: Level of Consciousness is awake, alert, obeys commands, Oriented to person, place, time, situation, Appropriate for age. Cardiovascular: Heart tones S1 S2 Capillary refill < 3 seconds. Respiratory: Airway is patent Respiratory effort is even, unlabored, Respiratory pattern is regular, symmetrical, Breath sounds are clear bilaterally. GI: Abdomen is flat, non-distended. : No signs and/or symptoms were reported regarding the genitourinary system. EENT: Throat is reddened has patchy exudate has enlarged tonsils. 19:21 Derm: Skin is intact, is healthy with good turgor. Musculoskeletal: Range of motion: wh intact in all extremities. Vital Signs: 18:25 BP 137 / 87; Pulse 107; Resp 18; Temp 99.1; Pulse Ox 98% ; Weight 92.99 kg; Height 5 sv ft. 5 in. (165.10 cm); Pain 7/10; 18:25 Body Mass Index 34.11 (92.99 kg, 165.10 cm) sv ED Course: 18:09 Patient arrived in ED. mr 18:10 Saurav Rehman MD is Private Physician. mr 18:24 Triage completed. sv 18:26 Arm band placed on Patient placed in waiting room, Patient notified of wait time. sv 18:59 Strep Sent. sv 19:05 Maico Alvarez PA is PHCP. [facility] 19:05 Kurt Condon MD is Attending Physician. [facility] 19:10 Mona Olivia is Primary Nurse. wh 19:20 Patient has correct armband on for positive identification. Call light in reach. Pulse wh ox on. NIBP on. 19:25 Saurav Rehman MD is Referral Physician. [facility] 19:46 No provider procedures requiring assistance completed. Patient did not have IV access during this emergency room visit. Administered Medications: No medications were administered Outcome: 19:25 Discharge ordered by . [facility] 19:47 Discharged to home ambulatory. 19:47 Condition: good 19:47 Discharge instructions given to patient, Instructed on discharge instructions, follow up and referral plans. medication usage, POC Pharyngits Demonstrated understanding of instructions, follow-up care, medications, POC Prescriptions given X 1. 19:48 Patient left the ED. Signatures: Melania Suarez RN RN sv Maico Alvarez PA PA jmm Rivera, Aye mr Jacquiecarin, Mona wh Corrections: (The following items were deleted from the chart) 18:27 18:25 Pulse 107bpm; Resp 18bpm; Pulse Ox 98%; Temp 99.1F; 92.99 kg; Height 5 ft. 5 in.; sv BMI: 34.1; Pain 7/10; sv
[2018-03-28 22:47] VITALS: BP 137/87; TEMP 99.1; O2SAT 98
== END 2018-03-28 19:48 | disposition home or self-care (01) ==
LOC: ER 18:06
DX: J02.0 Streptococcal pharyngitis (principal)
CPT/HCPCS: 87081; 99283

== ENCOUNTER 2024-12-13 03:00 | Emergency (ER) | payer BC, OTHER ==
--- OUTSIDE RECORDS SUMMARY | 2024-12-13 03:04 | XMS REPORT | Continuity of Care Document ---
Author Name Unknown Address [address] [facility] [address] [place] [address] [facility] Address [address] [facility] [place] [address] Care Team Providers Care Options Advisor Name Role Phone LORETTA MAGALLON Attending Clinician Unavailable LAB47 Attending Clinician Unavailable MARIPOSA CORDOBA Attending Clinician Unavailab WESTLEY Goldsmith Attending Clinician Unavailab DARRELL Mcfadden Attending Clinician Unavailab le LAB90 Attending Clinician Unavailable ÁLVARO STOVER Attending Clinician Unavailable JUSTYN LANDEROS Attending Clinician Unavailable DOC BARRON Attending Clinician Unava ilable TESTING, LJ FLETCHER STEELE Attending Clinician U navailPANCHITO Wright Attending Clinician Unavailable JOIE SMITH Attending Clinician Unavailable Mynor Gallardo Attending Clinician Unavailable Payers Payer Name Policy Type Policy Number Effective Date Expirati on Date Source [facility] 94 [id number] 2024 00:00:00 [employer] [facility] 2 [id number] 2022 00:00:00 Problems Condition Name Condition Details Condition Category Status Onset Date Resolution Date Last Treatment Date Treating Clinician Comments Source 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 10-17 00:00: 00 Fatuma Ferro - Externa l Gonorrhea in male Gonorrhea in male Problem Active [facility] Encounter for immunizati on Encounter for immunizati on Diagnosis Active [facility] Mixed hyperlipid emia Mixed hyperlipid emia Problem Active [facility] Body mass index (BMI) of 33.0-33.9 in adult Body mass index (BMI) of 33.0-33.9 in adult Problem Active [facility] STI (sexually transmitte d infection) STI (sexually transmitte d infection) Diagnosis Active [facility] Elevated blood pressure reading Elevated blood pressure reading Diagnosis Active [facility] LEE (nonalcoho lic steatohepa titis) LEE (nonalcoho lic steatohepa titis) Problem Active [facility] Social History Social Habit Start Date Stop Date Quantity Comments Source Gender identity Graciela Ferro - External Sexual orientation Brittaney Ferro - External Alcoholic beverage intake 2024-10-13 00:00:00 2024-10-13 00:00:00 Ex-drinker (finding) Fatuma Ferro - External History of Social function 2023-02-04 00:00:00 2023-02-04 00:00:00 Fatuma Ferro - External Alcohol intake 2023-02-04 00:00:00 2023-02-04 00:00:00 Ex-drinker (finding) Fatuma Ferro - External Tobacco use and exposure 2022-06-17 00:00:00 2022-06-17 00:00:00 Smokeless tobacco non-user Fatuma Ferro - External Sex 2022-05-28 13:22:05 2022-05-28 13:22:05 Male (finding) Fatuma Ferro - External Sex assigned at 1995 00:00:00 1995 00:00:00 Fatuma Ferro - External Smoking Status Start Date Stop Date Source Never smoked tobacco Fatuma Ferro - External Medications Ordered Medication Name Filled Medication Name Start Date Stop Date Current Medication? Ordering Clinician Indication Dosage Frequency Signature (SIG) Comments Components Source Emtricitabi ne-Tenofovi r DF 200-300 MG oral Tablet 10-13 00:00: 00 Yes [id number] 1{tbl} QD Take 1 tablet by mouth daily. Fatuma Guerrero Externa l Emtricitabi ne-Tenofovi r DF 200-300 MG oral Tablet 08-30 00:00: 00 10-13 00:00 :00 No [id number] 1{tbl} QD Take 1 tablet by mouth daily. Fatuma mensah Emtricitabi ne-Tenofovi r DF 200-300 MG oral Tablet 05-11 00:00: 00 08-30 00:00 :00 No [id number] 1{tbl} QD Take 1 tablet by mouth daily. Fatuma mensah methylPREDN ISolone 4 MG oral Tablet Therapy Pack 10-06 00:00: 00 Yes [id number] 1{heidi} Take 1 heidi by mouth See Admin Instructio ns Use as directed Fatuma mensah methylPREDN ISolone 4 MG oral Tablet Therapy Pack 10-06 00:00: 00 02-04 00:00 :00 No [id number] 1{heidi} Take 1 heidi by mouth See Admin Instructio ns Use as directed Fatuma mensah Amoxicillin (AMOXIL) 500 MG oral Capsule 10-06 00:00: 00 10-17 04:59 :00 No [id number] 500mg Take 1 capsule (500 mg total) by mouth 2 times daily for 10 days Fatuma mensah Zithromax Zithromax 01-21 00:00: 00 01-22 00:00 :00 No Saurav Rehman 2 tablets [facility] Immunizations Ordered Immunization Name Filled Immunization Name Date Status Comments Source COVID-19 VACCINE PFIZER 12+ (Wiley cap) 2021-04-13 00:00:00 Brittani Guerrero External COVID-19 VACCINE PFIZER 12+ (Wiley cap) 2021-04-13 00:00:00 Brittani Guerrero External COVID-19 VACCINE PFIZER 12+ (Wiley cap) 2021-03-23 00:00:00 Brittani Ferro - External COVID-19 VACCINE PFIZER 12+ (Wiley cap) 2021-03-23 00:00:00 Brittani Jacobs HPV 9 (Human Papillomavirus) 2019-06-06 00:00:00 Completed Fatuma Seybold - External HPV 9 (Human Papillomavirus) 2019-06-06 00:00:00 Completed Fatuma Seybold - External Flucelvax - single dose syringe Flucelvax - single dose syringe 2018-02-14 00:00:00 Completed [facility] Influenza, Injectable, Mdck, Preservative Free, Quadrivalt 2018-02-14 00:00:00 Completed Fatuma Seybold - External Influenza, Injectable, Mdck, Preservative Free, Quadrivalt 2018-02-14 00:00:00 Completed Fatuma Seybold - External Td (adult), 2 Lf tetanus toxoid, preservative free, adsorbed 2017-01-28 00:00:00 Completed Fatuma Seybold - External Td (adult), 2 Lf tetanus toxoid, preservative free, adsorbed 2017-01-28 00:00:00 Completed Fatuma Seybold - External HPV 9 (Human Papillomavirus) Unknown Completed Fatuma Seybo ld - External Td (adult), 2 Lf tetanus toxoid, preservative free, adsorbed Unknown Completed Fatuma Seybold - External Influenza, Injectable, Mdck, Preservative Free, Quadrivalent Unknown Completed Fatuma Seybold - External COVID-19 VACCINE PFIZER 12+ (Wiley cap) Unknown Completed Fatuma Seybold - External HPV 9 (Human Papillomavirus) Unknown Completed Fatuma Seybo ld - External Td (adult), 2 Lf tetanus toxoid, preservative free, adsorbed Unknown Completed Fatuma Seybold - External Influenza, Injectable, Mdck, Preservative Free, Quadrivalent Unknown Completed Fatuma Seybold - External COVID-19 VACCINE PFIZER 12+ (Wiley cap) Unknown Completed Fatuma Seybold - External HPV 9 (Human Papillomavirus) Unknown Completed Fatuma Seybo ld - External Td (adult), 2 Lf tetanus toxoid, preservative free, adsorbed Unknown Completed Fatuma Seybold - External Influenza, Injectable, Mdck, Preservative Free, Quadrivalent Unknown Completed Fatuma Seybold - External COVID-19 VACCINE PFIZER 12+ (Wiley cap) Unknown Completed Fatuma Seybold - External HPV 9 (Human Papillomavirus) Unknown Completed Fatuma Seybo ld - External Td (adult), 2 Lf tetanus toxoid, preservative free, adsorbed Unknown Completed Fatuma Seybold - External Influenza, Injectable, Mdck, Preservative Free, Quadrivalent Unknown Completed Fatuma Seybold - External COVID-19 VACCINE PFIZER 12+ (Wiley cap) Unknown Completed Fatuma Ramosybold - External HPV 9 (Human Papillomavirus) Unknown Completed Fatuma Marinao ld - External Td (adult), 2 Lf tetanus toxoid, preservative free, adsorbed Unknown Completed Fatuma Ramosybold - External Influenza, Injectable, Mdck, Preservative Free, Quadrivalent Unknown Completed Fatuma Seybold - External COVID-19 VACCINE PFIZER 12+ (Wiley cap) Unknown Completed Fatuma Ramosybold - External Vital Signs Vital Name Observation Time Observation Value Comments S alexandruce Systolic blood pressure 2024-10-13 13:28:00 114 mm[Hg] Fatuma Ramosybo ld - External Diastolic blood pressure 2024-10-13 13:28:00 70 mm[Hg] Fatuma Ramosybo ld - External Heart rate 2024-10-13 13:28:00 78 /min Kelse y Seybold - External Body temperature 2024-10-13 13:28:00 36.72 Yasmeen Fatuma Seybold - External Respiratory rate 2024-10-13 13:28:00 16 /min Fatuma Ramosybold - External Body height 2024-10-13 13:28:00 165.1 cm Graciela osullivan Seybold - External Body weight 2024-10-13 13:28:00 73.936 kg Graciela osullivan Seybold - External BMI 2024-10-13 13:28:00 27.12 kg/m2 Graciela osullivan Seybold - External Oxygen saturation in Arterial blood by Pulse oximetry 2024-10-13 13:28:00 97 /min Fatuma Ramosybo ld - External Systolic blood pressure 2024-08-30 13:32:00 130 mm[Hg] Fatuma Ramosybo ld - External Diastolic blood pressure 2024-08-30 13:32:00 81 mm[Hg] Fatuma Ramosybo ld - External Heart rate 2024-08-30 13:32:00 95 /min Kelse y Seybold - External Body temperature 2024-08-30 13:32:00 36.83 Yasmeen Fatuma Seybold - External Respiratory rate 2024-08-30 13:32:00 16 /min Fatuma Seybold - External Body height 2024-08-30 13:32:00 165.1 cm Graciela ey Seybold - External Body weight 2024-08-30 13:32:00 72.938 kg Graciela ey Seybold - External BMI 2024-08-30 13:32:00 26.76 kg/m2 Graciela ey Seybold - External Oxygen saturation in Arterial blood by Pulse oximetry 2024-08-30 13:32:00 96 /min Fatuma Seybo ld - External Systolic blood pressure 2024-03-15 17:16:00 134 mm[Hg] Fatuma Seybo ld - External Diastolic blood pressure 2024-03-15 17:16:00 81 mm[Hg] Fatuma Seybo ld - External Heart rate 2024-03-15 17:16:00 81 /min Kelse y Seybold - External Body temperature 2024-03-15 17:16:00 36.94 Yasmeen Fatuma Seybold - External Respiratory rate 2024-03-15 17:16:00 16 /min Fatuma Seybold - External Body height 2024-03-15 17:16:00 165.1 cm Graciela ey Seybold - External Body weight 2024-03-15 17:16:00 68.13 kg Graciela ey Seybold - External BMI 2024-03-15 17:16:00 24.99 kg/m2 Graciela ey Seybold - External Oxygen saturation in Arterial blood by Pulse oximetry 2024-03-15 17:16:00 97 /min Fatuma Seybo ld - External Systolic blood pressure 2023-10-18 21:45:00 129 mm[Hg] Fatuma Seybo ld - External Diastolic blood pressure 2023-10-18 21:45:00 67 mm[Hg] Fatuma Seybo ld - External Heart rate 2023-10-18 21:45:00 98 /min Kelse y Seybold - External Body temperature 2023-10-18 21:45:00 36.67 Yasmeen Fatuma Seybold - External Respiratory rate 2023-10-18 21:45:00 16 /min Fatuma Seybold - External Body height 2023-10-18 21:45:00 165.1 cm Graciela ey Seybold - External Body weight 2023-10-18 21:45:00 70.761 kg Graciela ey Seybold - External BMI 2023-10-18 21:45:00 25.96 kg/m2 Graciela ey Seybold - External Oxygen saturation in Arterial blood by Pulse oximetry 2023-10-18 21:45:00 100 /min Fatuma Marinao ld - External Systolic blood pressure 2023-02-04 20:31:00 118 mm[Hg] Fatuma Seybo ld - External Diastolic blood pressure 2023-02-04 20:31:00 66 mm[Hg] Fatuma Seybo ld - External Heart rate 2023-02-04 20:31:00 80 /min Kelse y Seybold - External Body temperature 2023-02-04 20:31:00 36.17 Yasmeen Fatuma Seybold - External Respiratory rate 2023-02-04 20:31:00 14 /min Fatuma Seybold - External Body height 2023-02-04 20:31:00 165.1 cm Graciela ey Seybold - External Body weight 2023-02-04 20:31:00 73.483 kg Graciela ey Seybold - External BMI 2023-02-04 20:31:00 26.96 kg/m2 Graciela ey Seybold - External Systolic blood pressure 2022-06-17 20:27:00 112 mm[Hg] Fatuma Seybo ld - External Diastolic blood pressure 2022-06-17 20:27:00 76 mm[Hg] Fatuma ybo ld - External Heart rate 2022-06-17 20:27:00 74 /min Kelse y Seybold - External Body temperature 2022-06-17 20:27:00 36.61 Yasmeen Fatuma Seybold - External Respiratory rate 2022-06-17 20:27:00 14 /min Fatuma Seybold - External Body height 2022-06-17 20:27:00 165.1 cm Graciela ey Seybold - External Body weight 2022-06-17 20:27:00 74.844 kg Graciela ey Seybold - External BMI 2022-06-17 20:27:00 27.46 kg/m2 Graciela ey Seybold - External Oxygen saturation in Arterial blood by Pulse oximetry 2022-06-17 20:27:00 99 /min Fatuma Ramosybo ld - External Encounters Start Date/Time End Date/Time Encounter Type Admission Type Attending [facility] Care Department Encounter ID Source 2022-02-05 13:47:47 Outpatient CHW W [id number] [facility] 2025-01-12 08:00:00 2025-01-12 08:00:00 Outpatient DO, LORETTA PENN [id number] [facility] 2024-10-13 09:05:00 2024-10-13 09:05:00 Outpatient LAB47 FATUMA PENN [id number] [facility] 2024-10-13 08:00:00 2024-10-13 08:00:00 Outpatient DO, LORETTA PENN [id number] [facility] 2024-08-30 09:45:00 2024-08-30 09:45:00 Outpatient LAB47 FATUMA PENN [id number] [facility] 2024-08-30 09:20:00 2024-08-30 09:20:00 Outpatient LAB47 FATUMA PENN [id number] [facility] 2024-08-30 08:45:00 2024-08-30 08:45:00 Outpatient DO, LORETTA PENN [id number] [facility] 2024-07-12 15:30:00 2024-07-12 15:30:00 Outpatient DO, LORETTA PENN [id number] [facility] 2024-06-30 08:00:00 2024-06-30 08:00:00 Outpatient DO, LORETTA PENN [id number] [facility] 2024-05-25 15:00:00 2024-05-25 15:00:00 Outpatient DO, LORETTA PENN [id number] [facility] 2024-05-22 10:30:00 2024-05-22 10:30:00 Outpatient DO, LORETTA PENN [id number] [facility] 2024-05-10 00:00:00 2024-05-10 00:00:00 Outpatient DO, LORETTA PENN [id number] [facility] 2024-04-14 10:50:00 2024-04-14 10:50:00 Outpatient LAB47 FATUMA PENN [id number] Fatuma Seybroman 2024-04-14 10:15:00 2024-04-14 10:15:00 Outpatient DO, LORETTA FATUMA PENN [id number] Fatuma Ramosybroman 2024-03-15 12:30:00 2024-03-15 12:30:00 Outpatient LAB47 FATUMA PENN [id number] [facility] 2024-03-15 11:30:00 2024-03-15 11:30:00 Outpatient DO, LORETTA FATUMA PENN [id number] [facility] 2024-03-15 00:00:00 2024-03-15 00:00:00 Outpatient RACHANAMARIPOSA CLEMENT FATUMA PENN [id number] [facility] 2024-02-05 00:00:00 2024-02-05 00:00:00 Outpatient WESTLEY ROCK [id number] [facility] 2023-11-04 16:00:00 2023-11-04 16:00:00 Outpatient FLORENCE DARRELL FATUMA PENN [id number] [facility] 2023-10-20 09:10:00 2023-10-20 09:10:00 Outpatient LAB90 FATUMA PENN [id number] [facility] 2023-10-20 00:00:00 2023-10-20 00:00:00 Outpatient PREÁLVARO RAMIREZ [id number] [facility] 2023-10-19 09:20:00 2023-10-19 09:20:00 Outpatient LAB90 FATUMA PENN [id number] [facility] 2023-10-18 16:30:00 2023-10-18 16:30:00 Outpatient PREZAS, ÁLVARO FATUMA PENN [id number] [facility] 2023-02-04 16:15:00 2023-02-04 16:15:00 Outpatient LAB90 [id number] [facility] 15:30:00 2023-02-04 15:30:00 Outpatient JUSTYN LANDEROS [id number] [facility] 2022-12-23 15:00:00 2022-12-23 15:00:00 Outpatient DOC BARRON FATUMA PENN [id number] Fatuma ybroman 2022-10-06 14:30:00 2022-10-06 14:30:00 Outpatient TESTINGNIR FATUMA PENN [id number] [facility] 2022-10-06 13:45:00 2022-10-06 13:45:00 Outpatient PANCHITO MALDONADO FATUMA PENN [id number] Fatuma [facility] 2022-08-31 00:00:00 2022-08-31 00:00:00 Outpatient HUNDL, JUSTYN PENN [id number] Fatuma [facility] 2022-07-29 00:00:00 2022-07-29 00:00:00 Outpatient HUNDChey, JUSTYN PENN [id number] Fatuma [facility] 2022-06-24 00:00:00 2022-06-24 00:00:00 Outpatient HUNDL, JUSTYN PENN [id number] [facility] 2022-06-23 00:00:00 2022-06-23 00:00:00 Outpatient HUNDL, JUSTYN PENN [id number] Fat[facility] 2022-06-23 00:00:00 2022-06-23 00:00:00 Outpatient JOIE SMITH FATUMA PENN [id number] [facility] 2022-06-21 00:00:00 2022-06-21 00:00:00 Outpatient HUNDL, JUSTYN PENN [id number] [facility] 2022-06-17 15:15:00 2022-06-17 15:15:00 Outpatient LAB90 FATUMA PENN [id number] Fatuma Seybroman 2022-06-17 14:30:00 2022-06-17 14:30:00 Outpatient LETI, JUSTYN PENN [id number] [facility] 2020-05-21 07:56:00 2020-05-21 07:56:00 Outpatient Myonr Gallardo Rosalinda [facility] [id number] [facility] 2020-05-16 10:00:00 2020-05-16 10:00:00 Outpatient Sami Mynor Rosalinda CHW [id number] [facility] 2020-03-21 09:43:00 2020-03-21 09:43:00 Outpatient SamiMynor CHW [id number] [facility] 2020-02-17 08:30:00 2020-02-17 08:30:00 Outpatient Mynor Gallardo CHW [id number] [facility] 2020-02-15 10:00:00 2020-02-15 10:00:00 Outpatient ViridianaMynor pineda CHW [id number] [facility] 2020-01-31 09:58:00 2020-01-31 09:58:00 Outpatient Mynor Gallardo CHW [id number] [facility] 2020-01-31 09:58:00 2020-01-31 09:58:00 Outpatient Mynor Glalardo CHW [id number] [facility] 2019-10-19 09:15:00 2019-10-19 09:15:00 Outpatient ViridianaMynor pineda CHW [id number] [facility] 2019-09-13 14:59:00 2019-09-13 14:59:00 Outpatient Mynor Gallardo Rosalinda CHW [id number] [facility] 2019-07-13 09:46:00 2019-07-13 09:46:00 Outpatient Mynor Gallardo Rosalinda CHW [id number] [facility] 2019-07-12 14:00:00 2019-07-12 14:00:00 Outpatient Mynor Gallardo Rosalinda CHW [id number] [facility] 2018-02-14 09:15:00 2018-02-14 09:15:00 Outpatient [facility] [id number] [facility] 2018-01-21 10:00:00 2018-01-21 10:00:00 Outpatient [facility] [id number] [facility] 2018-01-05 13:45:00 2018-01-05 13:45:00 [facility] Sheridancox monettpro [facility] [id number] [facility] Notes Date/Time Note Provider Source 2024-10-13 08:30:35 Chief Complaint Patient presents with Physical No noted acute distress. Vital signs stable. [phone] (home) [phone] (work) [facility] 2024-08-30 08:32:46 Chief Complaint Patient presents with Follow-Up Visit No other voiced concerns [facility] 2024-03-15 11:14:50 Chief Complaint Patient presents with OTHER HIV exposure. Std testing No other voiced concerns [facility] Barbara Sol MA, II [facility]
[2024-12-13] MEDS ORDERED: HYDROCODONE/CHLORPHEN 5 ML/OSYR ONE (03:29)
[2024-12-13 04:06] LABS: Influenza A Ag Negative; Influenza B Ag Negative; SARS-CoV-2 Antigen Rapid Res Negative (Negative)
--- NOTE | 2024-12-13 04:23 | EDPHYS ---
Physician Documentation [facility] Name: Pancho Chairez Age: 28 yrs Sex: Male : 1995 Arrival Date: 12/13/2024 Time: 03:00 Bed 19 Private MD: ED Physician Paul Unger HPI: 12/13 04:00 This 28 yrs old Male presents to ER via Ambulatory with complaints of Fever, rn Diarrhea, Cough, Congestion, Sore Throat. 04:00 Patient reports thinks he has COVID, reports 2 days of fever, chills, cough, rn congestion, sore throat, diarrhea. No difficulty breathing. No chest pain.. Historical: - Allergies: 03:18 No Known Allergies; br2 - Home Meds: 03:18 None [Active]; br2 - PMHx: 03:18 None; br2 - Immunization history:: Adult Immunizations not up to date. - Infectious Disease History:: Denies. - Social history:: Smoking status: Reported history of juuling and/or vaping. Patient uses alcohol, occasionally. street drugs, marijuana. - Family history:: not pertinent. - Hospitalizations: : No recent hospitalization is reported. ROS: 04:00 Constitutional: Positive for fever and chills Eyes: Negative for injury, pain, redness, rn and discharge, ENT: Positive for sore throat and congestion Cardiovascular: Negative for chest pain, palpitations, and edema, Respiratory: Positive for cough, negative for shortness of breath Abdomen/GI: Negative for abdominal pain, nausea, vomiting, diarrhea, and constipation, MS/Extremity: Negative for injury and deformity, Neuro: Negative for headache, weakness, numbness, tingling, and seizure, Exam: 04:00 Constitutional: This is a well developed, well nourished patient who is awake, alert, rn and in no acute distress. Head/Face: Normocephalic, atraumatic. ENT: Mild pharyngeal erythema, no exudate, no stridor Neck: Mildly tender anterior cervical lymphadenopathy Cardiovascular: Regular rate and rhythm. No pulse deficits. Respiratory: Speaking full sentences, unlabored. No increased work of breathing, no retractions or nasal flaring. Neuro: Awake and alert, GCS 15 Vital Signs: 03:16 BP 140 / 88; Pulse 73; Resp 18; Temp 98.6; Pulse Ox 96% ; Weight 72.57 kg; Height 5 ft. br2 5 in. ; Pain 7/10; 04:43 BP 123 / 73; Pulse 70; Resp 18; Temp 98.1; Pulse Ox 99% on R/A; sd4 03:16 Body Mass Index 26.63 (72.57 kg, 165.1 cm) br2 03:16 Pain Scale: Adult br2 MDM: 03:08 Medical Screening Exam initiated rn 04:21 Differential diagnosis: viral Infection, bacterial infection, URI. Data reviewed: vital rn signs, nurses notes, lab test result(s), and as a result, I will discharge patient. Counseling: I had a detailed discussion with the patient and/or guardian regarding the historical points, exam findings, and any diagnostic results supporting the discharge/admit diagnosis, lab results, the need for outpatient follow up, to return to the emergency department if symptoms worsen or persist or if there are any questions or concerns that arise at home. Special discussion: I discussed with the patient/guardian in detail that at this point there is no indication for admission to the hospital. It is understood, however, that if the symptoms persist or worsen the patient needs to return immediately for re-evaluation. Based on the history and exam findings, there is no indication for further emergent testing or inpatient evaluation. I discussed with the patient/guardian the need to see the primary care provider for further evaluation of the symptoms. 12/13 03:19 Order name: COVID-19 Ag + Flu A+B Ag; Complete Time: 04:09 rn 12/13 03:19 Order name: Group A Streptococcus Rapid; Complete Time: 04:09 rn 12/13 04:10 Order name: Throat Culture EDMS Administered Medications: 03:35 Drug: Tussionex Pennkinetic ER PO Suspension 5 ml PO once Route: PO; sd4 04:34 Drug: Amoxicillin-Clavulanate PO 875 mg PO once Route: PO; sd4 04:48 Follow up: Response: No adverse reaction sd4 Disposition Summary: 12/13/24 04:22 Discharge Ordered Notes: Location: Home rn Problem: new rn Symptoms: have improved rn Condition: Stable rn Diagnosis - Acute pharyngitis, unspecified rn Followup: rn - With: Private Physician - When: As needed - Reason: Recheck today's complaints, Re-evaluation by your physician Discharge Instructions: - Discharge Summary Sheet rn - Pharyngitis rn - Sore Throat rn Forms: - Medication Reconciliation Form rn - Antibiotic music intern - Prescription Opioid Use rn - Patient Portal Instructions rn - Leadership Thank You Letter rn Prescriptions: - Augmentin 875-125 mg Oral Tablet - take 1 tablet ORAL route every 12 hours for 10 days; 20 tablet; Refills: 0, rn Product Selection Permitted Signatures: Dispatcher [employer] EDPaul Geiger MD MD rn Riddle, Belinda, RN RN br2 Shannan Lebron RN RN sd4
--- NOTE | 2024-12-13 04:23 | ER ---
Nurse's Notes [facility] Name: Pancho Chairez Age: 28 yrs Sex: Male : 1995 Arrival Date: 12/13/2024 Time: 03:00 Bed 19 Private MD: Diagnosis: Acute pharyngitis, unspecified Presentation: 12/13 03:16 Chief complaint: Patient states: EXPOSED TO SOMEONE AT WORK THAT TESTED POSITIVE FOR br2 COVID. C/O OF SORE THROAT, FEEVER, DIARRHEA, PROD COUGH FOR THE LAST 3 DAYS. Coronavirus screen: Client denies travel out of the [place] in the last 14 days. Ebola Screen: Patient denies exposure to infectious person. Initial Sepsis Screen: Does the patient meet any 2 criteria? No. Patient's initial sepsis screen is negative. Does the patient have a suspected source of infection? No. Patient's initial sepsis screen is negative. Risk Assessment: Do you want to hurt yourself or someone else? Patient reports no desire to harm self or others. Onset of symptoms was December 10, 2024. 03:16 Method Of Arrival: Ambulatory br2 03:16 Acuity: JERRICA 4 br2 03:16 Acuity: JERRICA 3 br2 Triage Assessment: 03:18 General: Appears in no apparent distress. comfortable, Behavior is calm, cooperative. br2 Pain: Complains of pain in uvula, left aspect of posterior pharynx and right aspect of posterior pharynx Pain currently is 7 out of 10 on a pain scale. GI: Reports diarrhea. Historical: - Allergies: 03:18 No Known Allergies; br2 - Home Meds: 03:18 None [Active]; br2 - PMHx: 03:18 None; br2 - Immunization history:: Adult Immunizations not up to date. - Infectious Disease History:: Denies. - Social history:: Smoking status: Reported history of juuling and/or vaping. Patient uses alcohol, occasionally. street drugs, marijuana. - Family history:: not pertinent. - Hospitalizations: : No recent hospitalization is reported. Screenin:43 [facility] ED Fall Risk Assessment (Adult) History of falling in the last 3 months, sd4 including since admission No falls in past 3 months (0 pts) Confusion or Disorientation No (0 pts) Intoxicated or Sedated No (0 pts) Impaired Gait No (0 pts) Mobility Assist Device Used No (0 pt) Altered Elimination No (0 pt) Score/Fall Risk Level 0 - 2 = Low Risk. Abuse screen: Denies threats or abuse. Denies injuries from another. Nutritional screening: No deficits noted. Tuberculosis screening: No symptoms or risk factors identified. Assessment: 03:30 General: Appears in no apparent distress. Behavior is calm, cooperative, Reports fever sd4 for. 03:30 General: Reports sore throat and congestion. Pain: Denies pain. Neuro: No deficits sd4 noted. Cardiovascular: No deficits noted. Respiratory: Reports cough that is. GI: Reports diarrhea. : No deficits noted. No signs and/or symptoms were reported regarding the genitourinary system. EENT: No deficits noted. No signs and/or symptoms were reported regarding the EENT system. Derm: No deficits noted. No signs and/or symptoms reported regarding the dermatologic system. Musculoskeletal: No deficits noted. No signs and/or symptoms reported regarding the musculoskeletal system. Vital Signs: 03:16 BP 140 / 88; Pulse 73; Resp 18; Temp 98.6; Pulse Ox 96% ; Weight 72.57 kg; Height 5 ft. br2 5 in. ; Pain 7/10; 04:43 BP 123 / 73; Pulse 70; Resp 18; Temp 98.1; Pulse Ox 99% on R/A; sd4 03:16 Body Mass Index 26.63 (72.57 kg, 165.1 cm) br2 03:16 Pain Scale: Adult br2 ED Course: 03:07 Patient arrived in ED. gm2 03:08 Paul Unger MD is Attending Physician. rn 03:09 Shannan Lebron RN is Primary Nurse. sd4 03:18 Triage completed. br2 03:18 Arm band placed on right wrist. br2 04:43 Patient has correct armband on for positive identification. Bed in low position. Call sd4 light in reach. 04:43 Provided Education on: Coughs and congestion. sd4 04:43 No provider procedures requiring assistance completed. Patient did not have IV access sd4 during this emergency room visit. Administered Medications: 03:35 Drug: Tussionex Pennkinetic ER PO Suspension 5 ml PO once Route: PO; sd4 04:34 Drug: Amoxicillin-Clavulanate PO 875 mg PO once Route: PO; sd4 04:48 Follow up: Response: No adverse reaction sd4 Medication: 04:43 VIS not applicable for this client. sd4 Outcome: 04:22 Discharge ordered by . rn 04:43 Discharged to home ambulatory, sd4 04:43 Condition: stable 04:43 Discharge instructions given to patient, Instructed on discharge instructions, follow up and referral plans. medication usage, Following a medical screening exam, the patient was provided information regarding alternative care sites and resources available per registration personnel. 04:50 Patient left the ED. sd4 Signatures: Paul Unger MD MD rn Mitchell, Ginger gm2 Riddle, Belinda, RN RN br2 Shannan Lebron RN RN sd4
[2024-12-13] MEDS ORDERED: AMOX/K CLAV 875 MG TAB ONE (04:31)
[2024-12-13 05:06] VITALS: BP 123/73; TEMP 98.1; O2SAT 99
== END 2024-12-13 04:50 | disposition home or self-care (01) ==
LOC: ER 03:00
DX: J02.9 Acute pharyngitis, unspecified (principal); Z11.52 Encounter for screening for COVID-19; F17.290 Nicotine dependence, other tobacco product, uncomplicated
CPT/HCPCS: 36415; 87070; 87428; 99283